=== PATIENT | male | born 1995 | race Caucasian/White ===

== ENCOUNTER 2020-03-06 17:44 | Emergency (ER) | payer SELFPAY ==
[~2020-03-06] VITALS: Ht 198.1 cm; Wt 131.8 kg
--- NOTE | 2020-03-06 17:52 | PHYS DOC ---
Past History Past Medical History: No Pertinent History Past Surgical History: Other Past Surgical History abscess Smoking: Non-smoker Alcohol Use: Rarely Drug Use: None General Adult EDM: Chief Complaint: left hand crush injury HPI: HPI: Patient is a 25 year old male who presents for evaluation of left hand pain. About 3 hours prior to arrival he was doing some work on a roof when he crushed his hand between a box and the ladder he was on. There is significant bruising to his left thumb base. Patient has pain to moving that affected thumb. No visible deformity seen. No other injuries reported. Tetanus shot is up-to-date. There is no injury reported to his wrist or elbow. Review of Systems: Review of Systems: Constitutional: Denies fever or chills Eyes: Denies change in visual acuity HENT: Denies nasal congestion or sore throat Respiratory: Denies cough or shortness of breath Cardiovascular: Denies chest pain or edema GI: Denies abdominal pain, nausea, vomiting, bloody stools or diarrhea : Denies dysuria Musculoskeletal: Denies back pain or joint pain Integument: Denies rash Neurologic: Denies headache, focal weakness or sensory changes Endocrine: Denies polyuria or polydipsia Lymphatic: Denies swollen glands Psychiatric: Denies depression or anxiety Physical Exam: PE: Constitutional: Well developed, well nourished, mild acute distress, non-toxic appearance. [] HENT: Normocephalic, atraumatic, bilateral external ears normal, oropharynx moist, nose normal. [] Eyes: PERRL, EOMI, conjunctiva normal, no discharge. [] Neck: Normal range of motion, no tenderness, supple. [] Cardiovascular:Heart rate regular rhythm, no murmur [] Lungs & Thorax: Bilateral breath sounds clear to auscultation [] Abdomen: Bowel sounds normal, soft, no tenderness. [] Skin: Warm, dry, no erythema, no rash. [] Back: No tenderness. [] Extremities: moderate left hand tenderness/particularly left thumb base, no cyanosis, ROM intact, mild edema. [] Neurologic: Alert and oriented, normal motor function, normal sensory function, no focal deficits noted. [] Psychologic: Affect normal, judgement normal, mood normal. [] EKG: EKG: [] Radiology/Procedures: Radiology/Procedures: [] Heart Score: Risk Factors: Risk Factors: DM, Current or recent (<one month) smoker, HTN, HLP, family history of CAD, obesity. Risk Scores: Score 0 - 3: 2.5% MACE over next 6 weeks - Discharge Home Score 4 - 6: 20.3% MACE over next 6 weeks - Admit for Clinical Observation Score 7 - 10: 72.7% MACE over next 6 weeks - Early Invasive Strategies Course & Med Decision Making: Course & Med Decision Making Pertinent Labs and Imaging studies reviewed. (See chart for details) 2014 stable, I reviewed patient's x-rays I do not see an obvious fracture present. A thumb spica OCL was applied by nursing staff. Patient neuro vascular intact before and after the splint was placed. Prescription for Naprosyn given. Detailed follow-up instructions given Heather Disclaimer: Heather Disclaimer: This electronic medical record was generated, in whole or in part, using a voice recognition dictation system. Departure Departure: Impression: Primary Impression: Crushing injury of left hand Qualified Codes: S67.22XA - Crushing injury of left hand, initial encounter Additional Impression: Sprain of left thumb Qualified Codes: S63.642A - Sprain of metacarpophalangeal joint of left thumb, initial encounter Disposition: 01 DC HOME SELF CARE/HOMELESS Condition: STABLE Referrals: PCP,LLOYD (PCP) WHITNEY CERON MD Patient Instructions: Crush Injury, Fingers or Toes, Thumb Fracture Additional Instructions: Wear splint for comfort for the next several days. Rest ice and elevate the injured left hand for the next 24 hours. No use of left hand for the next 5 to 7 days. Scripts Naproxen (NAPROSYN) 500 Mg Tablet 1 TAB PO BID for pain for 10 Days, #20 TAB 0 Refills Prov: DERRICK RAHMAN DO 03/06/20 DERRICK RAHMAN DO Mar 06, 2020 17:52
[2020-03-06 17:53] VITALS: BP 135/86
[2020-03-06] MEDS ORDERED: IBUPROFEN 600 MG TABLET. PO ONE (18:00)
--- NOTE | 2020-03-06 20:18 | RAD ---
EXAM: HAND LEFT 3V 03/06/2020 5:56 PM CLINICAL INDICATION:Left hand pain, particular at thumb. Crush injury today COMPARISON:None TECHNIQUE:3 views of the left hand. FINDINGS:No acute fracture. Alignment is normal. Joint spaces are maintained. No focal soft tissue abnormality. IMPRESSION:No acute osseous abnormality. Electronically signed by: Sheryl Rodriguez MD (03/06/2020 8:16 PM) [id number]
[2020-03-06] MEDS ORDERED: NAPR-683 PO (20:19)
== END 2020-03-06 20:20 | disposition home or self-care (01) ==
LOC: ER 17:44
DX: S63.642A Sprain of metacarpophalangeal joint of left thumb, initial encounter (principal); W23.0XXA Caught, crushed, jammed, or pinched between moving objects, initial encounter; Y93.89 Activity, other specified; Y92.89 Other specified places as the place of occurrence of the external cause; Y99.8 Other external cause status
CPT/HCPCS: 29125; 73130; 99283

== ENCOUNTER 2020-04-18 06:01 | Emergency (ER) | payer SELFPAY ==
[~2020-04-18] VITALS: Ht 198.1 cm; Wt 119.3 kg
[~2020-04-18 06:01] MED LIST: NAPR-683 PO
[2020-04-18 06:20] VITALS: BP 129/92
[2020-04-18] MEDS ORDERED: IBUP-1673 PO (06:21)
--- NOTE | 2020-04-18 06:22 | PHYS DOC ---
Past History Past Medical History: No Pertinent History Past Surgical History: Other Smoking: Non-smoker Alcohol Use: Rarely Drug Use: None General Adult EDM: Chief Complaint: DENTAL PROBLEM HPI: HPI: History obtained from patient. Patient is a 25-year-old male with no reported PMH who presents with chief complaint of left lower molar discomfort. He states he has had this pain for the past 3 days. He states he bit into a taco and c racked his tooth. He states he is under constant pain since then. Denies fevers. Denies trismus. Denies neck pain. Denies dysphonia or dysphagia. Has not tried any pain medicine at home. Denies any recent antibiotics. States his greatest concern is getting referral to a dentist. Denies any recent dental procedures. States pain is aching in nature. States it is constant. States it is made worse with chewing food on that side. No other complaints. Review of Systems: Review of Systems: Constitutional: Denies fever or chills Eyes: Denies change in visual acuity HENT: Positive for dental pain Respiratory: Denies cough or shortness of breath Cardiovascular: Denies chest pain or edema GI: Denies abdominal pain, nausea, vomiting, bloody stools or diarrhea : Denies dysuria Musculoskeletal: Denies back pain or joint pain Integument: Denies rash Neurologic: Denies headache, focal weakness or sensory changes Endocrine: Denies polyuria or polydipsia Lymphatic: Denies swollen glands Psychiatric: Denies depression or anxiety Allergies: Allergies: Allergies Coded Allergies Type Severity Reaction Last Updated Verified No Known Drug Allergies 03/06/20 No Physical Exam: PE: Constitutional: Well developed, well nourished, no acute distress, non-toxic appearance. [] NECK: No midline cervical tenderness. Anterior cervical adenopathy not present. No tenderness of carotid sheath bilaterally. Neck supple with full ROM and without signs of meningismus. ENT: Numerous dental caries without overt evidence of periapical abscess formation. Cracked back left molar noted. No tenderness to tooth percussion. Tolerates saliva. No trismus. No erythema or exudate of the oropharynx. No airway obstruction or deep space infection. Normal phonation. Uvula midline. NECK: No midline cervical tenderness. Anterior cervical adenopathy not present. No tenderness of carotid sheath bilaterally. No submental tenderness, swelling, or erythema. Neck supple with full ROM and without signs of meningismus. Eyes: PERRLA, EOMI, conjunctiva normal, no discharge. [] Neck: Normal range of motion, no tenderness, supple, no stridor. [] Cardiovascular:Heart rate regular rhythm, no murmur [] Lungs & Thorax: Bilateral breath sounds clear to auscultation [] Abdomen: soft, no tenderness, no masses, no pulsatile masses. [] Skin: Warm, dry, no erythema, no rash. [] Back: No tenderness, no CVA tenderness. [] Extremities: No tenderness, no cyanosis, no clubbing, ROM intact, no edema. [] Neurologic: Alert and oriented X 3, normal motor function, normal sensory function, no focal deficits noted. [] Psychologic: Affect normal, judgement normal, mood normal. [] EKG: EKG: [] Radiology/Procedures: Radiology/Procedures: [] Heart Score: Risk Factors: Risk Factors: DM, Current or recent (<one month) smoker, HTN, HLP, family history of CAD, obesity. Risk Scores: Score 0 - 3: 2.5% MACE over next 6 weeks - Discharge Home Score 4 - 6: 20.3% MACE over next 6 weeks - Admit for Clinical Observation Score 7 - 10: 72.7% MACE over next 6 weeks - Early Invasive Strategies Course & Med Decision Making: Course & Med Decision Making Pertinent Labs and Imaging studies reviewed. (See chart for details) [] Patient is a well-appearing 25-year-old male who presents with chief complaint of dental pain over the past 3 days. Low suspicion for deep space infection. Overall appears well. No dysphonia or dysphagia. Tolerated p.o. in the emergency department. No signs of toxicity. Patient was given oral amoxicillin and [place] in the emergency department. He was encouraged use ibuprofen at home. He was given referral to multiple dentist. He will be discharged home with short course of amoxicillin. Return precautions discussed and understood. Stable for discharge home. Heather Disclaimer: Heather Disclaimer: This electronic medical record was generated, in whole or in part, using a voice recognition dictation system. Departure Departure: Impression: Primary Impression: Pain, dental Disposition: 01 DC HOME SELF CARE/HOMELESS Condition: STABLE Referrals: PCP,NO (PCP) Patient Instructions: Dental Abscess, Dental Injury Scripts Amoxicillin (AMOXICILLIN) 500 Mg Capsule 1 CAP PO BID for infection for 10 Days, #20 CAP Prov: BRIDGER LE DO 04/18/20 Amoxicillin (AMOXICILLIN) 500 Mg Capsule 1 CAP PO BID for infection for 10 Days, #20 CAP Prov: BRIDGER LE DO 04/18/20 Ibuprofen (IBUPROFEN) 200 Mg Tablet 600 MG PO QIDPRN PRN for PAIN, #15 TAB Prov: BRIDGER LE DO 04/18/20 BRIDGER LE DO Apr 18, 2020 06:22
[2020-04-18] MEDS ORDERED: HYDROcodone/APAP 5/325MG 1 TAB TABLET PO ONE (06:30)
[2020-04-18] MEDS ORDERED: AMOXICILLIN 250 MG CAPSULE PO ONE (07:00)
[2020-04-18] MEDS ORDERED: oxyCODONE IR 5 MG TABLET PO ONE (07:00)
[2020-04-18] MEDS ORDERED: AMOX500C PO ×2 (07:20→07:24)
== END 2020-04-18 07:27 | disposition home or self-care (01) ==
LOC: ER 06:01
DX: K08.89 Other specified disorders of teeth and supporting structures (principal)
CPT/HCPCS: 99283

== ENCOUNTER 2020-07-08 07:05 | Emergency (ER) | payer SELFPAY ==
[~2020-07-08] VITALS: Ht 195.6 cm; Wt 113.7 kg
[~2020-07-08 07:05] MED LIST changes: +AMOX500C PO; +IBUP-1673 PO
[2020-07-08 07:14] VITALS: BP 114/76
[2020-07-08] MEDS ORDERED: HYDROcodone/APAP 10/325 1 TAB TABLET PO ONE (07:30)
[2020-07-08] MEDS ORDERED: LIDOCAINE 2% VISCOUS 15 ML SOLUTION. SWSW ONE (07:30)
[2020-07-08] MEDS ORDERED: BENZOCAINE ONE 20% MUCOSAL SPRAY. (07:40)
[2020-07-08] MEDS ORDERED: BENZOCAINE ONE 20% MUCOSAL SPRAY. MM (07:45)
--- NOTE | 2020-07-08 07:59 | PHYS DOC ---
Past History Past Medical History: Asthma Past Surgical History: No Surgical History Smoking: Non-smoker Alcohol Use: None Drug Use: None General Adult EDM: Chief Complaint: DENTAL PROBLEM HPI: HPI: 25 yo M past medical history of asthma, presents the ED with complaints of dental pain after having his tooth extracted on July 02. States his pain started the day after and refilled "10 of hydrocodone." States he is out of this medication and is not having any relief with Tylenol or ibuprofen. Called his dental clinic who referred him to the ED for treatment "because I haven't paid my bill." Discussed his pain with his mom who recommended patient get antibiotics. Review of Systems: Review of Systems: Constitutional: Denies fever or chills Eyes: Denies change in visual acuity HENT: Denies nasal congestion or sore throat Respiratory: Denies cough or shortness of breath Cardiovascular: Denies chest pain or edema GI: Denies abdominal pain, nausea, vomiting, bloody stools or diarrhea : Denies dysuria Musculoskeletal: Denies back pain or joint pain Integument: Denies rash Neurologic: Denies headache, focal weakness or sensory changes Endocrine: Denies polyuria or polydipsia Lymphatic: Denies swollen glands Psychiatric: Denies depression or anxiety Current Medications: Current Meds: Current Medications Medications (Trade) Dose Ordered Sig/Zach Start Time Stop Time Status Last Admin Dose Admin Acetaminophen/ Hydrocodone Bitart (Lortab 10/325) 1 tab 1X ONCE 07/08/20 07:30 07/08/20 07:32 DC 07/08/20 07:43 1 TAB Benzocaine (Hurricaine One) 1 spray 1X ONCE 07/08/20 07:45 07/08/20 07:46 DC 07/08/20 07:43 1 SPRAY Lidocaine HCl (Viscous Lidocaine) 5 ml 1X ONCE 07/08/20 07:30 07/08/20 07:42 DC Allergies: Allergies: Allergies Coded Allergies Type Severity Reaction Last Updated Verified No Known Drug Allergies 07/08/20 No Physical Exam: PE: Constitutional: Well developed, well nourished, no acute distress/comfortable appearing, non-toxic appearance. HENT: Normocephalic, atraumatic, approximately tooth #5 pulled w/very tiny < 1mm hole, cannot appreciate any blood blot or underlying exposed bone, no drooling, controlling secretions, no head or neck swelling, very poor dentition with multiple caries/fillings Eyes: EOMI, conjunctiva normal, no discharge. Neck: Normal range of motion, supple, Cardiovascular: S1/2 present, regular rhythm Lungs & Thorax: Speaking in full sentences, bilateral equal chest rise, no tachypnea or increased work of breathing Abdomen: soft, no tenderness, Skin: Warm, dry, Extremities: No tenderness, no cyanosis, Neurologic: Alert and oriented X 3, normal motor function, normal sensory function, no focal deficits noted. [] Psychologic: Affect normal, judgement normal, mood normal. [] Current Patient Data: Vital Signs: Vital Signs Date Time Temp Pulse Resp B/P (MAP) Pulse Ox O2 Delivery O2 Flow Rate FiO2 07/08/20 07:43 16 Room Air 07/08/20 07:14 96.0 76 114/76 (89) 99 EKG: EKG: [] Radiology/Procedures: Radiology/Procedures: [] Heart Score: C/O Chest Pain: No Risk Factors: Risk Factors: DM, Current or recent (<one month) smoker, HTN, HLP, family history of CAD, obesity. Risk Scores: Score 0 - 3: 2.5% MACE over next 6 weeks - Discharge Home Score 4 - 6: 20.3% MACE over next 6 weeks - Admit for Clinical Observation Score 7 - 10: 72.7% MACE over next 6 weeks - Early Invasive Strategies Course & Med Decision Making: Course & Med Decision Making Pertinent Labs and Imaging studies reviewed. (See chart for details) Concern for postoperative dental pain, day 6 - suspect normal postop pain >> acute alveolar osteitis (which usually resolves day 7-10). Socket is so small that I'd have to open it up to pack the socket. Benzocaine applied and analgesia given in ed (friend is driving pt). Pt was [id number] 20 tablets of hydrocodone/Tylenol, 5 mg / 325 mg -picked up on July 03, was written on July 02. Last opioid use was tramadol once in May 2019. 6 opioid prescriptions in 2019. Given well-appearing exam, risk of addiction and postoperative timeline, will refer to primary care physician for opioid medication prescription. Was given a second benzocaine dose that he could take in 6 hours. Informed antibiotics to be sent to his pharmacy. Will discharge home with strict ED return precautions were given for fever, head or neck swelling, neck stiffness or difficulties breathing.. Encouraged urgent outpatient follow-up with PMD and dental clinic pain last referral given. Life-threatening processes were considered but are low suspicion at this time, given history, physical exam and ED workup. Pt was educated on all prescription medications and adverse effects. All patient's questions were answered and pt was stable at time of discharge. Life/limb-threatening differential includes but is not limited to, Case's angina, infection (periodontal or peritonsillar abscess, retropharyngeal abscess, Vincents angina, ANUG, pharyngeal/astronomy teacher/buccal space infection), trauma or fracture, dental fracture/subluxation/avulsion, dental bleeding or hemorrhage/DIC, pulpitis, alveolar osteitis or neoplasm I spoken with the patient and her caregivers. I explained the patient's con dition, diagnoses and treatment plan based on the information available to me at this time. I have answered the patient and her caregiver's questions and addressed any concerns. The patient and her caregivers have a good understanding of patient's diagnosis, condition and treatment plan as can be expected at this point. Vital signs have been stable. Patient's condition is stable and appropriate for discharge from the emergency department. Patient will pursue further outpatient evaluation with primary care physician or other designated or consulting physician as outlined in the discharge instructions. The patient and/or caregivers are agreeable to this plan of care and follow-up instructions have been explained in detail. The patient and/or caregivers have received these instructions in written form and have expressed an understanding of the discharge instructions. The patient and/or caregivers are aware that any significant change of condition or worsening of symptoms should prompt immediate return to this or the closest emergency department or call to 911. Heather Disclaimer: Heather Disclaimer: This electronic medical record was generated, in whole or in part, using a voice recognition dictation system. Departure Departure: Impression: Primary Impression: Pain, dental Additional Impression: Alveolar osteitis Disposition: 01 DC HOME SELF CARE/HOMELESS Condition: STABLE Referrals: PCP,NO (PCP) FOLLOW UP WITH FAMILY MEDICINE: [facility], [facility] [address] [address] [address], [facility] Instructions: Dental Dry Socket, Dental Pain Additional Instructions: EMERGENCY DEPARTMENT GENERAL DISCHARGE INSTRUCTIONS Thank you for coming to [facility] (ED) today and trusting us with you care. We trust that you had a positivie experience in our Emergency Department. If you wish to speak to the department management, you may call the director at [phone]. YOUR FOLLOW UP INSTRUCTIONS ARE FOLLOWS: 1. Do you have a private Doctor? If you do not have a private doctor, please ask for a resource list of physicians or clinics that may be able to assist you with follow up care. 2. The Emergency Physician has interpreted your x-rays. The X-Ray specialist will also review them. If there is a change in the findings, you will be notified in 48 hours when at all possible. 3. A lab test or culture has been done, your results will be reviewed and you will be notified if you need a change in treatment. ADDITIONAL INSTRUCTIONS AND INFORMATION: 1. Your care today has been supervised by a physician who is specially trained in emergency care. Many problems require more than one evaluation for a complete diagnosis and treatment. We recommend that you schedule your follow up appointment as recommended to ensure complete treatment of you illness or injury. If you are unable to obtain follow up care and continue to have a problem, or if your condition worsens, we recommend that you return to the ED. 2. We are not able to safely determine your condition over the phone nor are we able to give sound medical advice over the phone. For these safety reasons, if you call for medical advice we will ask you to come to the ED for further evaluation. 3. If you have any questions regarding these discharge instructions please call the ED at [phone]. SAFETY INFORMATION: In the interest of safety, wellness, and injury prevention; we encourage you to wear your sealbelt, if you smoke; quite smoking, and we encourage family to use a protective helmet for bicycling and other sporting events that present an increased risk for head injury. IF YOUR SYMPTOMS WORSEN OR NEW SYMPTOMS DEVELOP, OR YOU HAVE CONCERNS ABOUT YOUR CONDITION; OR IF YOUR CONDITION WORSENS WHILE YOU ARE WAITING FOR YOUR FOLLOW UP APPOINTMENT; EITHER CONTACT YOUR PRIMARY CARE DOCTOR, THE PHYSICIAN WHOSE NAME AND NUMBER YOU WERE GIVEN, OR RETURN TO THE ED IMMEDIATELY. Scripts Penicillin V Potassium (PENICILLIN V POTASSIUM) 500 Mg Tablet 1 TAB PO QID for dental pain for 7 Days, #28 TAB 0 Refills Prov: ORLY RAJAN DO 07/08/20 ORLY RAJAN DO Jul 08, 2020 07:59
[2020-07-08] MEDS ORDERED: PENI500T PO (08:05)
== END 2020-07-08 08:04 | disposition home or self-care (01) ==
LOC: ER 07:05
DX: K08.89 Other specified disorders of teeth and supporting structures (principal); M27.3 Alveolitis of jaws; R60.0 Localized edema; J45.909 Unspecified asthma, uncomplicated
CPT/HCPCS: 99283

== ENCOUNTER 2020-12-29 09:33 | Emergency (ER) | payer SELFPAY ==
[~2020-12-29] VITALS: Ht 195.6 cm; Wt 100.3 kg
[~2020-12-29 09:33] MED LIST changes: +PENI500T PO
[2020-12-29 09:40] VITALS: BP 146/80
--- NOTE | 2020-12-29 09:57 | PHYS DOC ---
Past History Past Medical History: Asthma Past Surgical History: No Surgical History Smoking: Non-smoker Alcohol Use: None Drug Use: None Adult General Chief Complaint Chief Complaint: SKIN PROBLEM HPI HPI Patient is a 25-year-old male presenting for poison sarah beth exposure. He has a history of this. Exposure was 4 days ago with development of classic rash. Reports rash is located on left antecubital area, distal portion of left arm and left flank. Reports ongoing symptoms without significant relief. States he has not had any money and not done anything in attempt to intervene with said rash. He is here requesting steroids and other modalities of treatment in the ER. Denies any pain, just ongoing itching Review of Systems Review of Systems Fourteen body systems of review of systems have been reviewed. See HPI for pertinent positives and negative responses, other morley all other systems are negative, non-pertinent or non-contributory Allergies Allergies Allergies Coded Allergies Type Severity Reaction Last Updated Verified No Known Drug Allergies 07/08/20 No Physical Exam Physical Exam Constitutional: Well developed, well nourished, no acute distress, non-toxic appearance. HENT: Normocephalic, atraumatic, bilateral external ears normal, oropharynx moist, no oral exudates, nose normal. Eyes: PERRLA, EOMI, conjunctiva normal, no discharge. Neck: Normal range of motion, no tenderness, supple, no stridor. Cardiovascular: Heart rate regular, sinus rhythm, no murmurs rubs or gallops Lungs & Thorax: Bilateral breath sounds clear to auscultation Abdomen: Bowel sounds normal, soft, no tenderness, no masses, no pulsatile masses. Nonsurgical abdomen, no peritoneal signs Skin: Warm, dry, no erythema, patient has rash consistent with poison sarah beth exposure present to left flexor portion of antecubital area in addition to left flank over left lateral rib cage that is red, irritated, slightly raised with small vesicles Back: No tenderness, no CVA tenderness. Extremities: No tenderness, no cyanosis, no clubbing, ROM intact, no edema. Neurologic: Alert and oriented X 3, grossly normal motor & sensory function, no focal deficits noted. Psychologic: Affect normal, judgement normal, mood normal. EKG EKG [] Radiology/Procedures Radiology/Procedures [] Heart Score C/O Chest Pain: No Risk Factors: Risk Factors: DM, Current or recent (<one month) smoker, HTN, HLP, family history of CAD, obesity. Risk Scores: Risk Factors: DM, Current or recent (<one month) smoker, HTN, HLP, family history of CAD, obesity. Course & Med Decision Making Course & Med Decision Making ABCs unremarkable. I disclosed entirety of ER findings and discussed most likely diagnosis of poison sarah beth exposure, noncomplicated. No indications for aggressive ER intervention such as steroids. 25 mg p.o. Benadryl given with instructions for continued outpatient soothing measures at home such as oatmeal baths, wet compresses, ice packs, topical lotions and/or compounds etc. Plan of care discussed at length with need for close outpatient follow-up to review today's ER visit stressed. Strict return precautions were also discussed at length with good understanding by patient. Patient voiced understanding and agreement with the plan. Patient knows to come back for repeat evaluation if concerning signs or symptoms present prior to outpatient follow-up. Hemodynamically stable, ambulatory and well-appearing at time of disposition. Dragon Disclaimer Dragon Disclaimer This electronic medical record was generated, in whole or in part, using a voice recognition dictation system. Departure Departure: Impression: Primary Impression: Poison sarah beth Disposition: HOME / SELF CARE / HOMELESS Condition: STABLE Referrals: PCP,NO (PCP) Additional Instructions: Your child was seen for classic poison sarah beth exposure. Most of the time, hives will go away in a week or so. Give your child Benadryl every 6 hours as needed for break through hives. Continued soothing measures such as using topical lotions, compounds, oatmeal baths and ice packs are advised. Return to the Urgent Care or the Emergency Room if your child has difficulty breathing, difficulty swallowing, or if you have any other concerns CARMELO SIMPSON DO Dec 29, 2020 09:57
[2020-12-29] MEDS ORDERED: diphenhydrAMINE HCL 25 MG CAPSULE PO ONE (10:00)
== END 2020-12-29 10:08 | disposition home or self-care (01) ==
LOC: ER 09:33
DX: L23.7 Allergic contact dermatitis due to plants, except food (principal); J45.909 Unspecified asthma, uncomplicated
CPT/HCPCS: 99282; Q0163